=== PATIENT | female | born 1950 | race Caucasian/White ===

== ENCOUNTER 2016-10-23 12:00 | Emergency (ER) | payer MEDICARE, OTHER ==
[~2016-10-23] VITALS: Ht 162.6 cm; Wt 87.5 kg
[2016-10-23 12:03] VITALS: Ht 162.6 cm; Wt 87.5 kg
[2016-10-23] MEDS ORDERED: CEPH-443 PO (12:36)
--- NOTE | 2016-10-23 15:44 | ERD ---
ER Documentation Chief Complaint Date/Time DATE: 10/23/16 TIME: 15:30 Chief Complaint PUS FILLED SORE ON RIGHT ELBOW X 5 DAYS HPI 66-year-old female with history of hypertension diabetes accompanied by her sisters complaining of painful lesion on her right elbow. Patient stated that has been there for 5 days, and she did notice a pus filled pocket. Because of her diabetes, she is concerned about infection. Denies fever or chills. Denies injury. Denies decreased functioning in the right upper extremity. ROS All systems reviewed and are negative except as per history of present illness. Medications Home Meds Active Scripts Cephalexin* (Keflex*) 500 Mg Capsule, 500 MG PO QID for 5 Days, CAP Prov:AYUSH COLEY. CERTIFIED MASTER SAFE TECHNICIAN 10/23/16 Allergies Allergies: Coded Allergies: No Known Allergy (Unverified , 10/23/16) PMhx/Soc History of Surgery: Yes (APPENDECTOMY ) Anesthesia Reaction: No Hx Neurological Disorder: No Hx Cardiac Disorders: Yes (HTN, DM) Hx Psychiatric Problems: Yes Hx Miscellaneous Medical Probl: No Hx Alcohol Use: No Hx Substance Use: No Hx Tobacco Use: No Smoking Status: Never smoker Physical Exam Vitals Vital Signs Date Time Temp Pulse Resp B/P Pulse Ox O2 Delivery O2 Flow Rate FiO2 10/23/16 12:03 97.4 91 19 130/60 98 Physical Exam General: Well-developed, well-nourished, conscious and coherent, in no distress Skin: Warm and dry without rash, good texture and turgor. A 1 cm bulla on the posterior right forearm, inferior to the elbow. There is a small ring of erythema surrounding the bulla. Area tender to palpation. Head: Normocephalic without evidence of trauma Eyes: Sclera and conjunctivae normal; pupils equal, round, and reactive to light; extraocular movements are intact Neck: Supple without meningismus or adenopathy. Carotids are equal. Trachea midline. No bruits or JVD Chest: Normal AP diameter. Good expansion without retractions. Nontender. Lungs are clear to auscultate bilaterally with good tidal volume Heart: Regular rate and rhythm. No murmur, rub, or gallops heard Extremities: Full range of motion. Good strength bilaterally. No clubbing, cyanosis, or edema. Peripheral pulses are intact. Sensation intact Neuro: Alert and oriented 4, GCS 15. Cranial nerves grossly intact. Motor and sensory exams nonfocal. Moves all extremities. Speech clear. Gait normal Procedures/MDM Procedure note: Incision and Drainage Verbal consent obtained for incision and drainage of patient's bulla. The area was prepped with Betadine. The wound was then cleaned and dressed. Patient tolerated procedure well. After drainage of bulla, patient's lesion was reexamined. There is a 1.2 cm sized induration, likely cellulitis. Low suspicion for necrotizing fasciitis, osteomyelitis. Patient appears well, stable for discharge and outpatient management. Medical decision making shared with patient and family. Education provided to patient and family. Patient and family expressed understanding of the plan. Medications on discharge: Keflex. Follow-up: Return to ED 2 days for recheck. Departure Diagnosis: Primary Impression: Skin bulla Additional Impression: Cellulitis Condition: Stable Patient Instructions: Cellulitis Additional Instructions: Call your primary care doctor TOMORROW for an appointment during the next 2-3 days.See the doctor sooner or return here if your condition worsens before your appointment time. AYUSH COLEY NP Oct 23, 2016 15:43
== END 2016-10-23 12:48 | disposition home or self-care (01) ==
LOC: FTE 12:00
DX: R23.8 Other skin changes (principal); L03.113 Cellulitis of right upper limb; I10 Essential (primary) hypertension; E11.9 Type 2 diabetes mellitus without complications

== ENCOUNTER 2018-04-20 09:54 | Emergency (ER) | payer MEDICARE, OTHER ==
[~2018-04-20] VITALS: Ht 167.6 cm; Wt 90.5 kg
[~2018-04-20 09:54] MED LIST: CEPH-443 PO
[2018-04-20 09:57] VITALS: Ht 167.6 cm; Wt 90.5 kg
[2018-04-20] MEDS ORDERED: SOD CHLORIDE 0.9% 1,000 ML IV STA (10:10)
[2018-04-20] MEDS ORDERED: morphine 4 MG/ML VIAL IV STA (10:10)
[2018-04-20] MEDS ORDERED: KETOROLAC 15 MG INJ IV STA (10:10)
[2018-04-20] MEDS ORDERED: ONDANSETRON 4 MG INJ IV STA (10:10)
--- NOTE | 2018-04-20 10:23 | ERD ---
ER Documentation Chief Complaint Chief Complaint Compolains of flank pain x 3 days HPI During the patient's encounter translation services were utilized Language: Aremenian Source: Family 67-year-old female presents with 3 days of left flank pain. The flank pain is colicky and now slightly more concentrated into the left lower quadrant. Patient was seen in urgent care 1-2 days ago and was diagnosed with an ultrasound of ureterolithiasis. Patient was only sent home with Motrin. She still has persistent pain. No fevers or chills no hematuria no dysuria urgency or frequency. Blood pressure is elevated, patient has a history of hypertension and has been compliant with blood pressure medication. No midline back pain or numbness or tingling to the lower extremities. ROS All systems reviewed and are negative except as per history of present illness. Medications Home Meds Active Scripts Ondansetron (Ondansetron Odt) 4 Mg Tab.rapdis, 4 MG PO Q6H PRN for NAUSEA AND/OR VOMITING, #10 TAB Prov:PRATEEK QUINN MD 04/20/18 Hydrocodone/Acetaminophen ([place] 10-325 Tablet) 1 Each Tablet, 1 TAB PO Q6H PRN for PAIN, #7 TAB Prov:PRATEEK QUINN MD 04/20/18 Reported Medications Azilsartan-Chlorthalidone (Edarbyclor) 40-25 Mg Tablet, 1 TAB PO DAILY 04/20/18 Rosuvastatin Calcium* (Crestor*) 20 Mg Tablet, 20 MG PO QHS, #30 TAB 04/20/18 Chlorthalidone* (Chlorthalidone*) 25 Mg Tablet, 25 MG PO DAILY 04/20/18 Levothyroxine Sodium* (Levothyroxine Sodium*) 25 Mcg Tablet, 25 MCG PO BEFORE BREAKFAST, #30 TAB 04/20/18 Alprazolam* (Alprazolam*) 0.5 Mg Tablet, 0.5 MG PO QHS PRN for ANXIETY 04/20/18 Clonidine Hcl* (Clonidine Hcl*) 0.1 Mg Tab, 0.1 MG PO DAILY, TAB 04/20/18 Pregabalin* (Lyrica*) 50 Mg Capsule, 50 MG PO BID, CAP 04/20/18 Esomeprazole Mag Trihydrate (Nexium) 20 Mg Capsule.dr, 20 MG PO AC BREAKFAST, #30 CAP 04/20/18 Sitagliptin* (Januvia*) 50 Mg Tablet, 50 MG PO DAILY, #30 TAB 04/20/18 Glipizide* (Glipizide*) 5 Mg Tablet, 5 MG PO BID, TAB 04/20/18 Discontinued Scripts Cephalexin* (Keflex*) 500 Mg Capsule, 500 MG PO QID for 5 Days, CAP Prov:AYUSH COLEY CLEANING AND WASHING EQUIPMENT OPERATOR 10/23/16 Allergies Allergies: Coded Allergies: No Known Allergy (Unverified , 10/23/16) PMhx/Soc History of Surgery: Yes (APPENDECTOMY ) Anesthesia Reaction: No Hx Neurological Disorder: No Hx Cardiac Disorders: Yes (HTN, DM) Hx Psychiatric Problems: Yes Hx Miscellaneous Medical Probl: No Hx Alcohol Use: No Hx Substance Use: No Hx Tobacco Use: No FmHx Family History: No diabetes Physical Exam Vitals Vital Signs Date Temp Pulse Resp B/P (MAP) Pulse Ox O2 O2 Flow FiO2 Time Delivery Rate 04/20/18 98.5 89 20 196/85 96 09:57 (122) Physical Exam General: Slightly uncomfortable Head: Normocephalic, atraumatic. Eyes: Pupils equally reactive, EOM intact ENT: Moist mucous membranes Neck: Supple, no lymphadenopathy Respiratory: Lungs clear bilaterally, no distress Cardiovascular: RRR, no murmurs, rubs, or gallops Abdominal: Soft, non-tender, non-distended, no peritoneal signs : Deferred MSK: No edema, no unilateral swelling, 5/5 strength Neurologic: Alert and oriented, moving all extremities, normal speech, no focal weakness, no cerebellar signs Skin: No rash Psych: Normal mood Result Diagram: 04/20/18 1030 04/20/18 1030 Results 24 hrs Laboratory Tests Test 04/20/18 10:30 04/20/18 10:31 White Blood Count 7.3 10^3/ul Red Blood Count 4.40 10^6/ul Hemoglobin 12.9 g/dl Hematocrit 39.5 % Mean Corpuscular Volume 89.8 fl Mean Corpuscular Hemoglobin 29.3 pg Mean Corpuscular Hemoglobin Concent 32.7 g/dl Red Cell Distribution Width 13.2 % Platelet Count 300 10^3/UL Mean Platelet Volume 10.0 fl Immature Granulocytes % 0.300 % Neutrophils % 70.8 % Lymphocytes % 20.4 % Monocytes % 7.3 % Eosinophils % 0.8 % Basophils % 0.4 % Nucleated Red Blood Cells % 0.0 /100WBC Immature Granulocytes # 0.020 10^3/ul Neutrophils # 5.1 10^3/ul Lymphocytes # 1.5 10^3/ul Monocytes # 0.5 10^3/ul Eosinophils # 0.1 10^3/ul Basophils # 0.0 10^3/ul Nucleated Red Blood Cells # 0.0 10^3/ul Sodium Level 141 mmol/L Potassium Level 4.1 mmol/L Chloride Level 100 mmol/L Carbon Dioxide Level 31 mmol/L Anion Gap 10 Blood Urea Nitrogen 16 mg/dl Creatinine 0.73 mg/dl Est Glomerular Filtrat Rate mL/min > 60 mL/min Glucose Level 135 mg/dl Calcium Level 9.7 mg/dl Total Bilirubin 0.4 mg/dl Direct Bilirubin 0.00 mg/dl Indirect Bilirubin 0.4 mg/dl Aspartate Amino Transf (AST/SGOT) 23 IU/L Alanine Aminotransferase (ALT/SGPT) 20 IU/L Alkaline Phosphatase 95 IU/L Total Protein 6.7 g/dl Albumin 4.0 g/dl Globulin 2.70 g/dl Albumin/Globulin Ratio 1.48 Lipase 84 U/L Urine Color YELLOW Urine Clarity SLIGHTLY CLOUDY Urine pH 6.0 Urine Specific [place] 1.021 Urine Ketones TRACE mg/dL Urine Nitrite NEGATIVE mg/dL Urine Bilirubin NEGATIVE mg/dL Urine Urobilinogen 1+ mg/dL Urine Leukocyte Esterase 2+ Florentino/ul Urine Microscopic RBC 6 /HPF Urine Microscopic WBC 9 /HPF Urine Squamous Epithelial Cells FEW /HPF Urine Bacteria FEW /HPF Urine Mucus FEW /HPF Urine Hemoglobin 1+ mg/dL Urine Glucose NEGATIVE mg/dL Urine Total Protein 1+ mg/dl Current Medications Medications Dose Sig/Robert Start Time Status Last (Trade) Ordered Route PRN Stop Time Admin Dose Reason Admin Sodium 1,000 ml @ Q1H STAT 04/20/18 DC 04/20/18 Chloride 1,000 mls/hr IV 10:10 10:36 04/20/18 11:09 Morphine 4 mg ONCE STAT 04/20/18 DC 04/20/18 Sulfate IV 10:10 10:43 (morphine) 04/20/18 10:11 Ondansetron 4 mg ONCE STAT 04/20/18 DC 04/20/18 HCl (Zofran IV 10:10 10:43 Inj) 04/20/18 10:11 Ketorolac 15 mg ONCE STAT 04/20/18 DC 04/20/18 Tromethamine IV 10:10 10:42 (Toradol) 04/20/18 10:11 Tamsulosin 0.4 mg ONCE ONCE 04/20/18 DC HCl PO 10:30 (Flomax) 04/20/18 10:31 Procedures/MDM EKG, MONITORS, & DIAGNOSTIC IMAGING: CT IMPRESSION: No evidence of urolithiasis, obstructive uropathy or diverticulitis. Nonvisualization appendix. Fatty liver. Hiatal hernia. Bibasilar fibrosis versus plate-like atelectasis. Old granulomatous disease. Question fluid or debris within the endometrial canal of atrophic postmenopausal uterus. Correlation with pelvic ultrasound is suggested.. LAB INTERPRETATION: * No evidence of infectious process on CBC * Chemistry shows no evidence of hepatobiliary obstruction * The patient's urinalysis is consistent with scant microscopic hematuria MEDICAL DECISION MAKING: Patient presents with flank pain with possible diagnosis of ureterolithiasis on ultrasound in urgent care. They do not have the documentation. The patient was only given Motrin. Her clinical exam and history is consistent with likely ureteral stone. The patient's blood pressure is elevated but she has a history of hypertension has no midline back pain or ripping or tearing sensation that wo uld be suggestive of dissection. Low pretest probability for this process. CT imaging would be appropriate to rule out alternative etiology, localized stone if needed. ER COURSE: * Laboratory testing and diagnostic imaging is unrevealing. No obvious stone noted on CT however the patient has complete resolution of symptoms. There is a possible scenario that the patient passed her stone and seems likely given the patient's urinalysis. * Again, the patient's pain is well controlled. The patient's blood pressure is normalized. This does not appear to be consistent with dissection. I did discuss repeat CT with IV contrast with the patient and family but at this point given complete resolution of symptoms I do not believe it is indicated. * The patient can be safely discharged home with strict return precautions. * Family was informed of uterine findings on CT and need to follow-up with OB /ASSEMBLY INSTRUCTIONS WRITER CONSULTATION: None DISPOSITION PLAN: We discussed follow up with the patient's primary care doctor within 24 to 48 hours as needed. We also discussed return to the emergency room for worsening symptoms or worsening condition. Outpatient referral: None required Discharge Medications: Sj Garcia Diagnosis: Primary Impression: Flank pain Additional Impression: Hypertensive urgency Condition: Stable PRATEEK QUINN MD Apr 20, 2018 10:23
[2018-04-20] MEDS ORDERED: TAMSULOSIN (SR) 0.4 MG CAP PO ONE (10:30)
[2018-04-20] MEDS ORDERED: SITA50TA2 PO (10:57)
[2018-04-20] MEDS ORDERED: ESOM20CA PO (10:57)
[2018-04-20] MEDS ORDERED: GLIP5TAB13 PO (10:57)
[2018-04-20] MEDS ORDERED: CLON-379 PO (10:58)
[2018-04-20] MEDS ORDERED: PREG50CA PO (10:58)
[2018-04-20] MEDS ORDERED: ALPR0.5T6 PO (10:59)
[2018-04-20] MEDS ORDERED: LEVO25TA6 PO (11:01)
[2018-04-20] MEDS ORDERED: ROSU20TA PO (11:02)
[2018-04-20] MEDS ORDERED: CHLO25TA2 PO (11:02)
[2018-04-20] MEDS ORDERED: AZIL1TAB2 PO (11:03)
[2018-04-20] MEDS ORDERED: HYDR-3980 PO (11:27)
[2018-04-20] MEDS ORDERED: ONDA4TAB14 PO (11:27)
[2018-04-20 11:59] VITALS: BP 119/73; PULSE 76; RESP 17
[2018-04-20] MEDS ORDERED: CEPH-443 PO (21:04)
== END 2018-04-20 12:36 | disposition home or self-care (01) ==
LOC: E/R 09:54
DX: I16.0 Hypertensive urgency (principal); I10 Essential (primary) hypertension; E11.9 Type 2 diabetes mellitus without complications; Z79.84 Long term (current) use of oral hypoglycemic drugs
CPT/HCPCS: 36415; 74176; 80053; 81001; 83690; 85025; 87086; 96374; 96375; 99285; J1885; J2270; J2405; J7030

== ENCOUNTER 2018-04-20 18:37 | Emergency (ER) | payer MEDICARE, OTHER ==
[~2018-04-20] VITALS: Wt 92.5 kg
[~2018-04-20 18:37] MED LIST changes: +ALPR0.5T6 PO; +AZIL1TAB2 PO; +CHLO25TA2 PO; +CLON-379 PO; +ESOM20CA PO; +GLIP5TAB13 PO; +HYDR-3980 PO; +LEVO25TA6 PO; +ONDA4TAB14 PO; +PREG50CA PO; +ROSU20TA PO; +SITA50TA2 PO
[2018-04-20] MEDS ORDERED: ASPIRIN 81 MG TAB PO STA (19:13)
[2018-04-20] MEDS ORDERED: NITROGLYCERIN 2% 1 GM OINT PKT TD STA (19:13)
[2018-04-20] MEDS ORDERED: NITROGLYCERIN (SL) 0.4 MG TAB SL PRN ×2 (19:30→22:00)
[2018-04-20] MEDS ORDERED: ONDANSETRON 4 MG INJ IV PRN (21:00)
[2018-04-20] MEDS ORDERED: ACETAMINOPHEN 325 MG TAB PO PRN ×2 (21:00→22:00)
[2018-04-20] MEDS ORDERED: SOD CHLORIDE 0.9% 500 ML IV STA (21:01)
[2018-04-20] MEDS ORDERED: CEPH-443 PO (21:04)
--- NOTE | 2018-04-20 21:13 | ERD ---
ER Documentation Chief Complaint Chief Complaint shortness of breath x 1 hour HPI Patient is a 67-year-old female with hypertension and diabetes who presents with shortness of breath. The patient was in the ER this morning for a kidney stone and flank pain which has since resolved. Yesterday she came in for now that she had low blood pressure, shortness of breath, and midsternal chest pain. She was brought in by ambulance. Her symptoms started 2 hours ago but have worsened and have been constant. She has had no treatment as of yet. She does have a primary doctor. ROS All systems reviewed and are negative except as per history of present illness. Medications Home Meds Active Scripts Cephalexin* (Keflex*) 500 Mg Capsule, 500 MG PO BID for 7 Days, CAP Prov:FLETCHER SWAIN MD 04/20/18 Ondansetron (Ondansetron Odt) 4 Mg Tab.rapdis, 4 MG PO Q6H PRN for NAUSEA AND/OR VOMITING, #10 TAB Prov:PRATEEK QUINN MD 04/20/18 Hydrocodone/Acetaminophen ([place] 10-325 Tablet) 1 Each Tablet, 1 TAB PO Q6H PRN for PAIN, #7 TAB Prov:PRATEEK QUINN MD 04/20/18 Reported Medications Azilsartan-Chlorthalidone (Edarbyclor) 40-25 Mg Tablet, 1 TAB PO DAILY 04/20/18 Rosuvastatin Calcium* (Crestor*) 20 Mg Tablet, 20 MG PO QHS, #30 TAB 04/20/18 Chlorthalidone* (Chlorthalidone*) 25 Mg Tablet, 25 MG PO DAILY 04/20/18 Levothyroxine Sodium* (Levothyroxine Sodium*) 25 Mcg Tablet, 25 MCG PO BEFORE BREAKFAST, #30 TAB 04/20/18 Alprazolam* (Alprazolam*) 0.5 Mg Tablet, 0.5 MG PO QHS PRN for ANXIETY 04/20/18 Clonidine Hcl* (Clonidine Hcl*) 0.1 Mg Tab, 0.1 MG PO DAILY, TAB 04/20/18 Pregabalin* (Lyrica*) 50 Mg Capsule, 50 MG PO BID, CAP 04/20/18 Esomeprazole Mag Trihydrate (Nexium) 20 Mg Capsule.dr, 20 MG PO AC BREAKFAST, #30 CAP 04/20/18 Sitagliptin* (Januvia*) 50 Mg Tablet, 50 MG PO DAILY, #30 TAB 04/20/18 Glipizide* (Glipizide*) 5 Mg Tablet, 5 MG PO BID, TAB 04/20/18 Discontinued Scripts Cephalexin* (Keflex*) 500 Mg Capsule, 500 MG PO QID for 5 Days, CAP Prov:AYUSH COLEY HIP HOP ARTIST 10/23/16 Allergies Allergies: Coded Allergies: No Known Allergy (Unverified , 04/20/18) PMhx/Soc History of Surgery: Yes (APPENDECTOMY ) Anesthesia Reaction: No Hx Neurological Disorder: No Hx Cardiac Disorders: Yes (HTN, DM) Hx Psychiatric Problems: Yes Hx Miscellaneous Medical Probl: No Hx Alcohol Use: No Hx Substance Use: No Hx Tobacco Use: No Smoking Status: Never smoker FmHx Family History: coronary disease Physical Exam Vitals Vital Signs Date Temp Pulse Resp B/P (MAP) Pulse Ox O2 O2 Flow FiO2 Time Delivery Rate 04/20/18 Nasal 2 19:20 Cannula 04/20/18 98.0 106 24 167/74 96 18:46 (105) Physical Exam Const: Moderate distress Head: Atraumatic Eyes: Normal Conjunctiva ENT: Normal External Ears, Nose and Mouth. Neck: Full range of motion. No meningismus. Resp: Clear to auscultation bilaterally Cardio: Regular rate and rhythm, no murmurs Abd: Soft, non tender, non distended. Normal bowel sounds Skin: No petechiae or rashes Back: No midline or flank tenderness Ext: No cyanosis, or edema Neur: Awake and alert Psych: Normal Mood and Affect Result Diagram: 04/20/18191904/20/181919 Results 24 hrs Laboratory Tests Test 04/20/18 19:20 04/20/18 21:07 White Blood Count 7.5 10^3/ul Red Blood Count 4.25 10^6/ul Hemoglobin 12.4 g/dl Hematocrit 38.8 % Mean Corpuscular Volume 91.3 fl Mean Corpuscular Hemoglobin 29.2 pg Mean Corpuscular Hemoglobin Concent 32.0 g/dl Red Cell Distribution Width 13.8 % Platelet Count 299 10^3/UL Mean Platelet Volume 10.4 fl Immature Granulocytes % 0.300 % Neutrophils % 66.5 % Lymphocytes % 23.6 % Monocytes % 8.1 % Eosinophils % 1.1 % Basophils % 0.4 % Nucleated Red Blood Cells % 0.0 /100WBC Immature Granulocytes # 0.020 10^3/ul Neutrophils # 5.0 10^3/ul Lymphocytes # 1.8 10^3/ul Monocytes # 0.6 10^3/ul Eosinophils # 0.1 10^3/ul Basophils # 0.0 10^3/ul Nucleated Red Blood Cells # 0.0 10^3/ul Sodium Level 144 mmol/L Potassium Level 4.3 mmol/L Chloride Level 103 mmol/L Carbon Dioxide Level 31 mmol/L Anion Gap 10 Blood Urea Nitrogen 22 mg/dl Creatinine 1.01 mg/dl Est Glomerular Filtrat Rate mL/min 54 mL/min Glucose Level 124 mg/dl Calcium Level 9.2 mg/dl Troponin I < 0.012 ng/ml Bedside Glucose 104 mg/dL Current Medications Medications Dose Sig/Robert Start Time Status Last (Trade) Ordered Route PRN Stop Time Admin Dose Reason Admin Aspirin 162 mg ONCE STAT 04/20/18 DC 04/20/18 (Aspirin) PO 19:13 19:31 04/20/18 19:14 1 inch ONCE STAT 04/20/18 DC Nitroglycerin TD 19:13 04/20/18 (Nitroglyceri 19:14 n 2% Oint) 1 tab Q5M UP TO 3 04/20/18 Nitroglycerin DOSES PRN 19:30 SL CHEST (Nitroglyceri PAIN n (Sl Tab) 0.4 Mg) Ondansetron 4 mg ER BRIDGE 04/20/18 HCl (Zofran PRN IV 21:00 Inj) NAUSEA AND/OR 04/21/18 VOMITING 20:59 650 mg ER BRIDGE 04/20/18 Acetaminophen PRN PO MILD 21:00 (Tylenol PAIN(1-3)OR 04/21/18 Tab) ELEVATED TEMP 20:59 Ceftriaxone 50 ml @ ONCE ONCE 04/20/18 Sodium 100 mls/hr IVPB 21:30 04/20/18 21:59 Sodium 500 ml @ Q1H STAT 04/20/18 Chloride 500 mls/hr IV 21:01 04/20/18 22:00 Procedures/MDM EKG read by me: Rate/Rhythm: Regular rate and rhythm at a normal rate Intervals: Normal Impression: No evidence of ischemia or arrhythmia Chest x-ray read by radiology. Patient is a 67-year-old female with hypertension and diabetes and family history of cardiac disease who presents with chest pain and shortness of breath. EKG and chest x-ray were negative and initial troponin was negative. She was given aspirin and nitroglycerin and feels better. I wanted to admit her to the hospital for cardiac workup but the patient now wants to leave AGAINST MEDICAL ADVICE. I explained her the risks of leaving including and myocardial infarction. She still wants to leave. Dr. Bojorquez had come to the bedside for her admission and we have convince the patient to stay for a second troponin at 2-1/2 hours which will be done. He is also recommended ceftriaxone 1 g IV and 500 mL of normal saline bolus which I have ordered as the patient did have a UTI but was not discharged with antibiotics this morning. The patient will be discharged AGAINST MEDICAL ADVICE after the second troponin has been done. She should follow-up with her doctor within 24 hours for reevaluation. Departure Diagnosis: Primary Impression: Cystitis Additional Impressions: Shortness of breath Chest pain Chest pain type: unspecified Qualified Codes: R07.9 - Chest pain, unspecified Condition: Fair Patient Instructions: Cystitis, Chest Pain, Uncertain Cause Referrals: Your doctor Additional Instructions: Call your primary care doctor TOMORROW for an appointment during the next 1-2 days.See the doctor sooner or return here if your condition worsens before your appointment time. FLETCHER SWAIN MD Apr 20, 2018 21:13
[2018-04-20] MEDS ORDERED: CEFTRIAXONE 1 GM/50 ML (PMX) 50 ML IVPB ONE (21:30)
--- NOTE | 2018-04-20 21:34 | HP ---
Date/Time of Note Date/Time of Note DATE: 04/20/18 TIME: 21:34 Assessment/Plan VTE Prophylaxis SCD applied (from Nsg): Yes Pharm contraindication: low risk/ambulating Lines/Catheters IV Catheter Type (from Nrsg): Saline Lock Assessment/Plan Hospital Course This is a 67-year-old female who presented to the emergency room complaining of chest pain: #1 chest pain: Rule out ACS. Initial troponin was negative. EKG was normal sinus rhythm without any signs of ischemia. Given patient's risk factors patient was recommended to be admitted to the hospital for further workup however patient at the current time would like to leave AGAINST MEDICAL ADVICE. I as well as ED physician did recommend the patient to stay and explained to her the risk of possible if she left AMA. Patient understands but she was to like to go AGAINST MEDICAL ADVICE. I did discuss with regarding repeating troponin stat which has been ordered prior to her leaving. #2 urinary tract infection: Ceftriaxone 1 g IV x1, recommend p.o. antibiotics prescription #4 GAIL: Likely prerenal, secondary to underlying UTI. Patient was given a dose of ceftriaxone 1 g IV x1 as well as a 500 cc bolus normal saline. #4 diabetes mellitus: Hemoglobin A1c, insulin sliding scale #5 hypertension: Resume home meds #6 hyperlipidemia check lipid panel #7 DVT GI prophylaxis: SCDs, no GI prophylaxis indicated Dispo: Patient was advised to be admitted to the hospital however patient wants to leave AGAINST MEDICAL ADVICE as she states she is feeling better. Risks and benefits were explained to the patient by me as well as the ED physician however the patient did report shortness leave AMA. The ED doctor has ordered a stat do se of ceftriaxone 1 g IV x1, 500 cc bolus of normal saline, as well as a stat troponin. Patient will be leaving the hospital AGAINST MEDICAL ADVICE. Result Diagram: 04/20/18191904/20/181919 Results 24hrs Laboratory Tests Test 04/20/18 19:20 04/20/18 21:07 White Blood Count 7.5 Red Blood Count 4.25 Hemoglobin 12.4 Hematocrit 38.8 Mean Corpuscular Volume 91.3 Mean Corpuscular Hemoglobin 29.2 Mean Corpuscular Hemoglobin Concent 32.0 Red Cell Distribution Width 13.8 Platelet Count 299 Mean Platelet Volume 10.4 Immature Granulocytes % 0.300 Neutrophils % 66.5 Lymphocytes % 23.6 Monocytes % 8.1 Eosinophils % 1.1 Basophils % 0.4 Nucleated Red Blood Cells % 0.0 Immature Granulocytes # 0.020 Neutrophils # 5.0 Lymphocytes # 1.8 Monocytes # 0.6 Eosinophils # 0.1 Basophils # 0.0 Nucleated Red Blood Cells # 0.0 Sodium Level 144 Potassium Level 4.3 Chloride Level 103 Carbon Dioxide Level 31 Anion Gap 10 Blood Urea Nitrogen 22 H Creatinine 1.01 H Est Glomerular Filtrat Rate mL/min 54 L Glucose Level 124 Calcium Level 9.2 Troponin I < 0.012 Bedside Glucose 104 HPI/ROS Admit Date/Time Admit Date/Time Hx of Present Illness Chief complaint: Chest pressure, shortness of breath This is a 67-year-old female with a past medical history of hypertension and diabetes and hyperlipidemia who presented to the emergency department complaining of chest pressure and shortness of breath. Patient originally had been to the emergency department earlier in the day after complaining of left flank pain. She had a CAT scan that was negative for any sort of stones or other abnormalities. She was discharged home. She reports later in the day at home she started having substernal chest pressure nonradiating along with shortness of breath. She continues to report a left lower flank pain. Upon my examination of the patient at the bedside she verbalized to me that she would l jose f to go home and that she does not want to stay in the hospital as she feels better now. At that point he and I both spoke to the patient and recommended that she stay in the hospital to be evaluated. She however was adamant to go home. Given that the patient did have a positive urinalysis earlier in the day I did request Dr. Oliva if she could get a dose of ceftriaxone at the current time. Along with a repeat troponin prior to her leaving AGAINST MEDICAL ADVICE. Allergies: NKDA Medications: See Jun Const: As per HPI Eyes : No pain discharge or redness or change in visual acuity ENT: No pain, sore throat, congestion, congestion, dysphagia or discharge Respiratory: As per HPI Cardiovascular: As per HPI GI : no change in appetite, abdominal pain, nausea, vomiting, diarrhea, constipation, or change in the color his stool Genitourinary: As per HPI Musculoskeletal: No joint pain, back pain, neck pain, restricted range of motion in neck or joints Skin: No rash, bruising or hives Neuro: No headache, dizziness, syncope, seizure, focal weakness Endocrine: No polyuria, polydipsia, temperature intolerance Psych: No hallucination, depression, anxiety or suicidal ideation PMH/Family/Social Past Medical History Hypertension, hyperlipidemia, diabetes mellitus Medications Current Medications Nitroglycerin (Nitroglycerin (Sl Tab) 0.4 Mg) 1 tab Q5M UP TO 3 DOSES PRN SL CHEST PAIN; Start 04/20/18 at 19:30 Ondansetron HCl (Zofran Inj) 4 mg ER BRIDGE PRN IV NAUSEA AND/OR VOMITING; Start 04/20/18 at 21:00; Stop 04/21/18 at 20:59 Acetaminophen (Tylenol Tab) 650 mg ER BRIDGE PRN PO MILD PAIN(1-3)OR ELEVATED TEMP; Start 04/20/18 at 21:00; Stop 04/21/18 at 20:59 Ceftriaxone Sodium 50 ml @ 100 mls/hr ONCE ONCE IVPB Last administered on 04/20/18at 21:17; Admin Dose 100 MLS/HR; Start 04/20/18 at 21:30; Stop 04/20/18 at 21:59 Sodium Chloride 500 ml @ 500 mls/hr Q1H STAT IV Last administered on 04/20/18at 21:17; Admin Dose 500 MLS/HR; Start 04/20/18 at 21:01; Stop 04/20/18 at 22:00 Coded Allergies: No Known Allergy (Unverified , 04/20/18) Past Surgical History History of diagnostic heart catheterization Family History Significant Family History: no pertinent family hx Social History Alcohol Use: none Smoking Status: Never smoker Drug Use: none Exam/Review of Systems Vital Signs Vitals Vital Signs Date Temp Pulse Resp B/P (MAP) Pulse Ox O2 O2 Flow FiO2 Time Delivery Rate 04/20/18 Nasal 2 19:20 Cannula 04/20/18 98.0 106 24 167/74 96 18:46 (105) Exam Exam General: Patient is a pleasant female currently lying in bed in no acute distress HEENT: Atraumatic, normocephalic. The pupils are equal, round and reactive. Extraocular motor are intact Neck: Supple with full range of motion. No rigidity or meningismus Chest: Nontender to palpation Lungs: Clear to auscultation bilaterally no crackles rales or wheezing Heart: Normal S1-S2, Regular rhythm and rate. No murmur, S3, or S4 Abdomen: Soft , nontender, nondistended , bowel sounds are present. No guarding no rebound tenderness , No masses or organomegaly. Mild left lower back/flank pain to palpation Extremities: Normal to inspection, no edema no cyanosis Neurologic: Normal mental status, speech normal, cranial nerves II through XII are intact, motor and sensory are intact, no focal weakness Additional Comments Telemetry monitoring: Normal sinus rhythm at approximately 90 bpm EKG: Regular rate and rhythm, no T wave or ST of normality concerning for acute ischemia PROCEDURE: CHEST X-RAY CLINICAL INDICATION: Chest pain TECHNIQUE: Portable upright one-view COMPARISON: 09/03/2012 FINDINGS: Heart size and pulmonary vascularity appears unremarkable. Linear densities in the lung bases suggestive of plate-like atelectasis, improved from prior study. These may be residual changes. No pneumothorax or pleural effusion noted IMPRESSION: Discoid atelectasis lung bases RPTAT: AAOO Physician Lurdes Date Time Electronically viewed and signed by Physician Lurdes on 04/20/2018 20:33 MB/ CC: FLETCHER SWAIN MD [id number] MATT FAYE Apr 20, 2018 21:34
[2018-04-20] MEDS ORDERED: NACL 0.9% 3 ML SYG IV SCH (22:00)
[2018-04-20 22:45] VITALS: BP 125/63; PULSE 90; RESP 19
== END 2018-04-21 00:02 | disposition left against medical advice (07) ==
LOC: E/R 18:37 → CANRESERV 21:30 → E/R 04-21 00:02 → CANBEDREQ 04-21 19:38
DX: N30.90 Cystitis, unspecified without hematuria (principal); I10 Essential (primary) hypertension; E11.9 Type 2 diabetes mellitus without complications; R07.9 Chest pain, unspecified
CPT/HCPCS: 36415; 71045; 80048; 82962; 84484; 85025; 93005; 96374; 99285; J0696; J7040